=== PATIENT | male | born 1955 | race African-American/Black ===

== ENCOUNTER 2016-08-31 19:17 | Inpatient (IN) | payer MEDICARE ==
[~2016-08-31] VITALS: Ht 172.7 cm; Wt 55.4 kg
[~2016-08-31 19:17] MED LIST: ASPI-867 PO; ATOR20TA PO; CALC667T2 PO; CLOP75TA2 PO; ESOM10SU PO; FAMO20TA96 PO; GABA-531 PO; HYDR-3927 PO; METO25TA6 PO; ROC50 PO; SIMV40TA5 PO
[2016-08-31] MEDS ORDERED: SODIUM CHLORIDE 0.9% 1,000 ML IV ONE (20:45)
[2016-08-31] MEDS ORDERED: ACETAMINOPHEN 650MG SUPP PR ONE (20:45)
[2016-08-31] MEDS ORDERED: ACETAMINOPHEN 325MG SUPP ONE (20:46)
[2016-08-31] MEDS ORDERED: VANCOMYCIN 1 G PREMIX 200 ML IV SCH (21:15)
[2016-08-31] MEDS ORDERED: PIPERACILLIN SODIUM/TAZOBACTAM 4.5 G in DEXT 5% WATER 100 ML IV SCH (21:15)
[2016-08-31 21:27] LABS: BASOPHILS % 0.6 % (0.0-2.0); EOSINOPHILS % 0.8 % (0.0-5.0); HEMATOCRIT. 24.8 % (42.0-52.0); HEMOGLOBIN. 7.8 g/dL (14.0-18.0); LYMPHOCYTES % 7.2 % (20.0-50.0); MEAN CORPUSCULAR HEMOGLOBIN 29.1 pg (28.0-32.0); MEAN CORPUSCULAR HGB CONC 31.3 g/dL (31.0-37.0); MEAN CORPUSCULAR VOLUME 93.1 fL (80.0-94.0); MEAN PLATELET VOLUME 7.3 fl (7.4-10.4); MONOCYTES % 11.6 % (2.0-8.0); NEUTROPHILS % 79.8 % (40.0-76.0); PLATELET 255 x1000/uL (130-400); RED BLOOD CELL COUNT 2.67 mill/uL (4.7-6.1); RED CELL DISTRIBUTION WIDTH 18.4 % (11.6-14.6); WHITE BLOOD COUNT 11.3 x1000/uL (4.5-11.0)
[2016-08-31 21:35] LABS: INR 1.3; PROTHROMBIN TIME 13.6 sec
[2016-08-31 21:42] LABS: ALANINE AMINOTRANSFERASE 18 IU/L (13-61); ANION GAP 15; CALCIUM 8.8 mg/dL (8.5-10.1); CARBON DIOXIDE 35 mEq/L (21-32); CHLORIDE 98 mEq/L (98-107); INDEX HEMOLYSI 1 (1-3); INDEX ICTERIC 1 (1-4); INDEX LIPEMIC 1 (1-3); UREA NITROGEN BLOOD 43 mg/dL (7-21); eGFR 14 mL/min (>60)
[2016-08-31 21:44] LABS: NT PRO B-TYPE NATRIURETIC PEP 11319 pg/mL (5-125); TROPONIN I 0.07 ng/mL (0.00-0.04)
[2016-09-01] MEDS ORDERED: ATOR20TA PO (03:12)
[2016-09-01] MEDS ORDERED: DULO60CA44 PO (03:12)
[2016-09-01] MEDS ORDERED: ASPI-1035 PO (03:12)
[2016-09-01] MEDS ORDERED: DOCU-150 PO (03:12)
[2016-09-01] MEDS ORDERED: DOCUSATE SODIUM 100MG CAPSULE PO PRN (11:45)
[2016-09-01] MEDS ORDERED: IPRATROPIUM/ALBUTEROL 0.5-3(2.5)MG/3ML NEB INH PRN (11:45)
[2016-09-01] MEDS ORDERED: HYDROCODONE/ACETAMINOPHEN 5/325MG TABLET PO PRN (11:45)
[2016-09-01] MEDS ORDERED: ONDANSETRON HCL 4MG/2ML VIAL IV PRN (11:45)
[2016-09-01] MEDS ORDERED: CLONIDINE 0.1MG TABLET PO PRN (11:45)
[2016-09-01] MEDS ORDERED: PIPERACILLIN/TAZ 2.25G PREMIX 50 ML IV SCH (12:50)
[2016-09-01] MEDS ORDERED: METOPROLOL TARTRATE 25MG TABLET PO SCH (15:15)
[2016-09-01 16:35] LABS: CALCIUM 9.5 mg/dL (8.5-10.1); MAGNESIUM 2.1 mg/dL (1.8-2.4)
[2016-09-01 16:37] LABS: CREATINE KINASE MB FRACTION 4.6 ng/mL (0.5-3.6); TROPONIN I 0.06 ng/mL (0.00-0.04)
[2016-09-01 20:45] VITALS: BP 103/70
[2016-09-01] MEDS ORDERED: ATORVASTATIN CALCIUM 20MG TABLET PO SCH (21:00)
[2016-09-01 23:28] LABS: CREATINE KINASE MB FRACTION 3.4 ng/mL (0.5-3.6); TROPONIN I 0.05 ng/mL (0.00-0.04)
[2016-09-01] MEDS: ACETAMINOPHEN 325MG TABLET PO PRN (23:54)
[2016-09-02] VITALS (9 sets, daily range): BP systolic 70–116; BP diastolic 46–68
[2016-09-02] MEDS: PIPERACILLIN/TAZ 2.25G PREMIX 50 ML IV SCH ×4 (00:05→23:52)
[2016-09-02 06:46] LABS: BASOPHILS % 0.6 % (0.0-2.0); EOSINOPHILS % 1.9 % (0.0-5.0); HEMATOCRIT. 24.6 % (42.0-52.0); HEMOGLOBIN. 7.6 g/dL (14.0-18.0); LYMPHOCYTES % 10.2 % (20.0-50.0); MEAN CORPUSCULAR HEMOGLOBIN 28.7 pg (28.0-32.0); MEAN CORPUSCULAR HGB CONC 30.9 g/dL (31.0-37.0); MEAN CORPUSCULAR VOLUME 92.8 fL (80.0-94.0); MEAN PLATELET VOLUME 7.9 fl (7.4-10.4); MONOCYTES % 9.5 % (2.0-8.0); NEUTROPHILS % 77.8 % (40.0-76.0); PLATELET 294 x1000/uL (130-400); RED BLOOD CELL COUNT 2.65 mill/uL (4.7-6.1); RED CELL DISTRIBUTION WIDTH 18.8 % (11.6-14.6); WHITE BLOOD COUNT 11.3 x1000/uL (4.5-11.0)
[2016-09-02 07:14] LABS: CALCIUM 9.5 mg/dL (8.5-10.1)
[2016-09-02 07:31] LABS: THYROID STIMULATING HORMONE 1.4 uIU/mL (0.36-3.74)
[2016-09-02] MEDS: METOPROLOL TARTRATE 25MG TABLET PO SCH ×2 (09:03→21:00)
[2016-09-02] MEDS ORDERED: IPRATROPIUM/ALBUTEROL 0.5-3(2.5)MG/3ML NEB HHN PRN (12:15)
[2016-09-02] MEDS ORDERED: PANTOPRAZOLE SODIUM 40 MG/VIAL IV NR (13:30)
[2016-09-02] MEDS ORDERED: EPINEPHRINE 0.1MG/ML (1:10,000) 10ML SYR ONE (13:37)
[2016-09-02] MEDS ORDERED: VANCOMYCIN 1 G PREMIX 200 ML IV SCH (14:00)
[2016-09-02] MEDS: IPRATROPIUM/ALBUTEROL 0.5-3(2.5)MG/3ML NEB HHN SCH ×3 (16:15→23:30)
[2016-09-02] MEDS: SODIUM HYPOCHLORITE (0.25%) 480ML SOLUTION (HALF STRENGTH) TOP SCH (16:52)
[2016-09-02] MEDS: SUCRALFATE 1G TABLET PO SCH ×3 (16:52→21:00)
[2016-09-02] MEDS ORDERED: LORAZEPAM 2MG/ML CPJ IV PRN (17:30)
[2016-09-02] MEDS: ATORVASTATIN CALCIUM 40MG TABLET PO SCH (21:00)
[2016-09-02] MEDS ORDERED: NOREPINEPHRINE 32 MG in DEXT 5% WATER 468 ML IV PRN (22:15)
[2016-09-02 22:40] LABS: BG BASE EXCESS 1.8 mmol/L (-2.0-2.0); BG CARBOXYHEMOGLOBIN 0.6 % (0.5-1.5); BG DEOXYHEMOGLOBIN 5.6 % (0.0-5.0); BG FRACTION INSPIRED OXYGEN 80; BG HCO3 ACT 26.8 mmol/L (22.0-26.0); BG METHEMOGLOBIN 0.4 % (0.0-1.5); BG OXYGEN SATURATION 94.3 % (92.0-98.5); BG OXYHEMOGLOBIN 93.4 % (94.0-97.0); BG PCO2 44.3 mmHg (35.0-45.0); BG PO2 77.7 mmHg (75.0-100.0); BG SAMPLE SITE LEFT RADIAL; BG TIDAL VOLUME(mL) 550 mL; BG TOTAL HEMOGLOBIN 8.7 g/dL (12.0-18.0); BG VENT MODE VENT - A/C; BG VENT RATE 18 set
[2016-09-02] MEDS: PROPOFOL 10MG/ML 100ML 100 ML IV PRN (23:07)
[2016-09-02 23:32] LABS: DIFFERENTIAL COMMENT 1; HEMOGLOBIN. 7.7 g/dL (14.0-18.0); MEAN CORPUSCULAR HEMOGLOBIN 28.6 pg (28.0-32.0); MEAN CORPUSCULAR HGB CONC 30.6 g/dL (31.0-37.0); MEAN CORPUSCULAR VOLUME 93.5 fL (80.0-94.0); MEAN PLATELET VOLUME 7.8 fl (7.4-10.4); PLATELET 286 x1000/uL (130-400); RED BLOOD CELL COUNT 2.67 mill/uL (4.7-6.1); RED CELL DISTRIBUTION WIDTH 19.4 % (11.6-14.6); WHITE BLOOD COUNT 15.8 x1000/uL (4.5-11.0)
[2016-09-02 23:44] LABS: CALCIUM 8.8 mg/dL (8.5-10.1)
[2016-09-03] VITALS (84 sets, daily range): BP systolic 57–158; BP diastolic 20–104
[2016-09-03 00:52] LABS: PLATELET ESTIMATE NORMAL
[2016-09-03] MEDS: IPRATROPIUM/ALBUTEROL 0.5-3(2.5)MG/3ML NEB HHN SCH ×5 (03:44→20:27)
[2016-09-03] MEDS: PROPOFOL 10MG/ML 100ML 100 ML IV PRN ×3 (04:58→23:30)
[2016-09-03 07:11] LABS: BG BASE EXCESS 3.8 mmol/L (-2.0-2.0); BG CARBOXYHEMOGLOBIN 0.5 % (0.5-1.5); BG DEOXYHEMOGLOBIN 1.4 % (0.0-5.0); BG HCO3 ACT 25.4 mmol/L (22.0-26.0); BG METHEMOGLOBIN 0.3 % (0.0-1.5); BG OXYGEN SATURATION 98.6 % (92.0-98.5); BG OXYHEMOGLOBIN 97.8 % (94.0-97.0); BG PCO2 27.5 mmHg (35.0-45.0); BG PH 7.584 (7.350-7.450); BG PO2 127.4 mmHg (75.0-100.0); BG SAMPLE SITE RIGHT BRACHIAL; BG TIDAL VOLUME(mL) 550 mL; BG TOTAL HEMOGLOBIN 8.8 g/dL (12.0-18.0); BG VENT MODE VENT - A/C; BG VENT RATE 18 set
[2016-09-03 07:22] LABS: BASOPHILS % 0.3 % (0.0-2.0); EOSINOPHILS % 0.7 % (0.0-5.0); HEMOGLOBIN. 8.1 g/dL (14.0-18.0); LYMPHOCYTES % 8.8 % (20.0-50.0); MEAN CORPUSCULAR HEMOGLOBIN 28.7 pg (28.0-32.0); MEAN CORPUSCULAR HGB CONC 32.5 g/dL (31.0-37.0); MEAN CORPUSCULAR VOLUME 88.2 fL (80.0-94.0); MEAN PLATELET VOLUME 7.6 fl (7.4-10.4); MONOCYTES % 7.2 % (2.0-8.0); PLATELET 271 x1000/uL (130-400); RED BLOOD CELL COUNT 2.83 mill/uL (4.7-6.1); RED CELL DISTRIBUTION WIDTH 19.7 % (11.6-14.6); WHITE BLOOD COUNT 12.6 x1000/uL (4.5-11.0)
[2016-09-03 08:44] LABS: TROPONIN I 0.64 ng/mL (0.00-0.04)
[2016-09-03] MEDS: METOPROLOL TARTRATE 25MG TABLET PO SCH ×2 (09:00→21:00)
[2016-09-03] MEDS: ASPIRIN 81MG EC TABLET PO SCH (10:59)
[2016-09-03] MEDS: SUCRALFATE 1G TABLET PO SCH (10:59)
[2016-09-03] MEDS: PANTOPRAZOLE SODIUM 40 MG/VIAL IV SCH (10:59)
[2016-09-03] MEDS: PIPERACILLIN/TAZ 2.25G PREMIX 50 ML IV SCH ×3 (10:59→23:28)
[2016-09-03] MEDS: CLOPIDOGREL 75MG TABLET PO SCH (11:00)
[2016-09-03] MEDS: SODIUM HYPOCHLORITE (0.25%) 480ML SOLUTION (HALF STRENGTH) TOP SCH (11:00)
[2016-09-03 13:10] LABS: BG BASE EXCESS 4.5 mmol/L (-2.0-2.0); BG CARBOXYHEMOGLOBIN 0.3 % (0.5-1.5); BG DEOXYHEMOGLOBIN 0.9 % (0.0-5.0); BG FRACTION INSPIRED OXYGEN 50; BG HCO3 ACT 28.4 mmol/L (22.0-26.0); BG METHEMOGLOBIN 0.3 % (0.0-1.5); BG OXYGEN SATURATION 99.1 % (92.0-98.5); BG OXYHEMOGLOBIN 98.5 % (94.0-97.0); BG PCO2 39.6 mmHg (35.0-45.0); BG PH 7.473 (7.350-7.450); BG PO2 175.8 mmHg (75.0-100.0); BG SAMPLE SITE RIGHT BRACHIAL; BG TIDAL VOLUME(mL) 500 mL; BG TOTAL HEMOGLOBIN 10.4 g/dL (12.0-18.0); BG VENT MODE VENT - A/C; BG VENT RATE 12 set
[2016-09-03] MEDS: SUCRALFATE 1 G/10 ML UDC PO SCH ×3 (13:33→21:49)
[2016-09-03] MEDS: NOREPINEPHRINE 32 MG in DEXT 5% WATER 468 ML IV PRN (14:40)
[2016-09-03] MEDS: ATORVASTATIN CALCIUM 40MG TABLET PO SCH (21:49)
[2016-09-03] MEDS: EPOETIN ALFA 10000UNITS/ML VIAL SUBCUT SCH (21:49)
[2016-09-04] VITALS (37 sets, daily range): BP systolic 69–159; BP diastolic 23–124
[2016-09-04] MEDS: IPRATROPIUM/ALBUTEROL 0.5-3(2.5)MG/3ML NEB HHN SCH ×7 (00:20→23:46)
[2016-09-04 05:19] LABS: BASOPHILS % 0.3 % (0.0-2.0); EOSINOPHILS % 0.8 % (0.0-5.0); HEMATOCRIT. 26.2 % (42.0-52.0); HEMOGLOBIN. 8.4 g/dL (14.0-18.0); LYMPHOCYTES % 7.4 % (20.0-50.0); MEAN CORPUSCULAR HEMOGLOBIN 28.8 pg (28.0-32.0); MEAN CORPUSCULAR HGB CONC 32.2 g/dL (31.0-37.0); MEAN CORPUSCULAR VOLUME 89.4 fL (80.0-94.0); MEAN PLATELET VOLUME 7.7 fl (7.4-10.4); MONOCYTES % 7.7 % (2.0-8.0); NEUTROPHILS % 83.8 % (40.0-76.0); PLATELET 254 x1000/uL (130-400); RED BLOOD CELL COUNT 2.93 mill/uL (4.7-6.1); RED CELL DISTRIBUTION WIDTH 19.8 % (11.6-14.6); WHITE BLOOD COUNT 11.3 x1000/uL (4.5-11.0)
[2016-09-04] MEDS: SODIUM HYPOCHLORITE (0.25%) 480ML SOLUTION (HALF STRENGTH) TOP SCH (05:30)
[2016-09-04 06:00] LABS: CALCIUM 9.3 mg/dL (8.5-10.1)
[2016-09-04] MEDS: PROPOFOL 10MG/ML 100ML 100 ML IV PRN (06:04)
[2016-09-04] MEDS: PIPERACILLIN/TAZ 2.25G PREMIX 50 ML IV SCH ×3 (07:30→23:21)
[2016-09-04] MEDS: ASPIRIN 81MG EC TABLET PO SCH (08:21)
[2016-09-04] MEDS: SUCRALFATE 1 G/10 ML UDC PO SCH ×4 (08:21→21:07)
[2016-09-04] MEDS: PANTOPRAZOLE SODIUM 40 MG/VIAL IV SCH (08:21)
[2016-09-04] MEDS: MAGNESIUM/ALUMINUM HYDROXIDE/SIMETHICONE 30ML UDC PO PRN (08:21)
[2016-09-04] MEDS: METOPROLOL TARTRATE 25MG TABLET PO SCH ×2 (08:22→21:08)
[2016-09-04] MEDS: CLOPIDOGREL 75MG TABLET PO SCH (08:22)
[2016-09-04 08:30] LABS: BG BASE EXCESS 0.3 mmol/L (-2.0-2.0); BG CARBOXYHEMOGLOBIN 0.5 % (0.5-1.5); BG DEOXYHEMOGLOBIN 2.9 % (0.0-5.0); BG FRACTION INSPIRED OXYGEN 40; BG HCO3 ACT 23.6 mmol/L (22.0-26.0); BG METHEMOGLOBIN 0.2 % (0.0-1.5); BG OXYGEN SATURATION 97.1 % (92.0-98.5); BG OXYHEMOGLOBIN 96.4 % (94.0-97.0); BG PCO2 33.1 mmHg (35.0-45.0); BG PH 7.471 (7.350-7.450); BG SAMPLE SITE RIGHT BRACHIAL; BG TIDAL VOLUME(mL) 500 mL; BG TOTAL HEMOGLOBIN 10.1 g/dL (12.0-18.0); BG VENT MODE VENT - A/C; BG VENT RATE 12 set
[2016-09-04] MEDS ORDERED: LORAZEPAM 2MG/ML CPJ IV PRN (11:30)
[2016-09-04] MEDS: FENTANYL CITRATE/PF 500 MCG in SODIUM CHLORIDE 0.9% 40 ML IV PRN ×2 (11:42→21:15)
[2016-09-04] MEDS ORDERED: VANCOMYCIN 1 G PREMIX 200 ML IV SCH ×2 (15:00)
[2016-09-04] MEDS: ATORVASTATIN CALCIUM 40MG TABLET PO SCH (21:07)
[2016-09-05] VITALS (93 sets, daily range): BP systolic 44–167; BP diastolic 24–122
[2016-09-05] MEDS: IPRATROPIUM/ALBUTEROL 0.5-3(2.5)MG/3ML NEB HHN SCH ×5 (04:13→20:05)
[2016-09-05 05:29] LABS: CALCIUM 9.2 mg/dL (8.5-10.1)
[2016-09-05 06:37] LABS: HEMATOCRIT. 28.9 % (42.0-52.0); MEAN CORPUSCULAR HEMOGLOBIN 28.4 pg (28.0-32.0); MEAN CORPUSCULAR HGB CONC 31.4 g/dL (31.0-37.0); MEAN CORPUSCULAR VOLUME 90.6 fL (80.0-94.0); MEAN PLATELET VOLUME 8.4 fl (7.4-10.4); PLATELET 265 x1000/uL (130-400); RED BLOOD CELL COUNT 3.18 mill/uL (4.7-6.1); RED CELL DISTRIBUTION WIDTH 19.9 % (11.6-14.6)
[2016-09-05 06:43] LABS: DIFFERENTIAL COMMENT 1
[2016-09-05] MEDS: SODIUM HYPOCHLORITE (0.25%) 480ML SOLUTION (HALF STRENGTH) TOP SCH (07:38)
[2016-09-05] MEDS: SUCRALFATE 1 G/10 ML UDC PO SCH ×4 (07:50→21:20)
[2016-09-05 07:58] LABS: ANISOCYTOSIS 1+; PLATELET ESTIMATE NORMAL
[2016-09-05] MEDS: METOPROLOL TARTRATE 25MG TABLET PO SCH ×2 (10:00→21:00)
[2016-09-05] MEDS: PANTOPRAZOLE SODIUM 40 MG/VIAL IV SCH (11:29)
[2016-09-05] MEDS: CLOPIDOGREL 75MG TABLET PO SCH (11:29)
[2016-09-05] MEDS: PIPERACILLIN/TAZ 2.25G PREMIX 50 ML IV SCH ×2 (11:30→18:32)
[2016-09-05] MEDS: ASPIRIN 81MG EC TABLET PO SCH (11:30)
[2016-09-05] MEDS ORDERED: LORAZEPAM 2MG/ML CPJ IV PRN (11:30)
[2016-09-05] MEDS ORDERED: DEXTROSE 50% WATER 50ML SYRINGE IV NR (14:11)
[2016-09-05] MEDS ORDERED: DEXT 5%/0.9% NACL 1,000 ML IV STA (14:11)
[2016-09-05] MEDS: MORPHINE SULFATE 2 MG/ML CPJ (NOT FOR IM USE) IV PRN (18:47)
[2016-09-05] MEDS ORDERED: MIDAZOLAM HCL 50 MG in DEXTROSE 5% WATER 40 ML IV PRN (20:45)
[2016-09-05] MEDS: ATORVASTATIN CALCIUM 40MG TABLET PO SCH (21:20)
[2016-09-05] MEDS: EPOETIN ALFA 10000UNITS/ML VIAL SUBCUT SCH (21:27)
[2016-09-05] MEDS: MIDODRINE HCL 5MG TABLET PO SCH (21:27)
[2016-09-05] MEDS: FENTANYL CITRATE/PF 500 MCG in SODIUM CHLORIDE 0.9% 40 ML IV PRN (22:21)
[2016-09-06] VITALS (88 sets, daily range): BP systolic 55–194; BP diastolic 28–141
[2016-09-06] MEDS: IPRATROPIUM/ALBUTEROL 0.5-3(2.5)MG/3ML NEB HHN SCH ×6 (00:22→20:08)
[2016-09-06] MEDS: PIPERACILLIN/TAZ 2.25G PREMIX 50 ML IV SCH ×3 (02:58→20:31)
[2016-09-06] MEDS: MORPHINE SULFATE 2 MG/ML CPJ (NOT FOR IM USE) IV PRN ×2 (03:11→21:46)
[2016-09-06] MEDS: NOREPINEPHRINE 32 MG in DEXT 5% WATER 468 ML IV PRN (04:00)
[2016-09-06 05:39] LABS: BASOPHILS % 0.7 % (0.0-2.0); EOSINOPHILS % 1.7 % (0.0-5.0); HEMATOCRIT. 31.8 % (42.0-52.0); HEMOGLOBIN. 9.7 g/dL (14.0-18.0); LYMPHOCYTES % 7.3 % (20.0-50.0); MEAN CORPUSCULAR HEMOGLOBIN 27.8 pg (28.0-32.0); MEAN CORPUSCULAR HGB CONC 30.4 g/dL (31.0-37.0); MEAN CORPUSCULAR VOLUME 91.4 fL (80.0-94.0); MEAN PLATELET VOLUME 7.9 fl (7.4-10.4); NEUTROPHILS % 80.3 % (40.0-76.0); PLATELET 345 x1000/uL (130-400); RED BLOOD CELL COUNT 3.48 mill/uL (4.7-6.1); WHITE BLOOD COUNT 12.3 x1000/uL (4.5-11.0)
[2016-09-06] MEDS: FENTANYL CITRATE/PF 500 MCG in SODIUM CHLORIDE 0.9% 40 ML IV PRN (05:49)
[2016-09-06 06:08] LABS: CALCIUM 9.3 mg/dL (8.5-10.1)
[2016-09-06 07:32] LABS: BG CARBOXYHEMOGLOBIN 0.2 % (0.5-1.5); BG CPAP (cmH2O) 0 cm(H2O); BG HCO3 ACT 22.3 mmol/L (22.0-26.0); BG OXYHEMOGLOBIN 95.8 % (94.0-97.0); BG PCO2 40.8 mmHg (35.0-45.0); BG PH 7.356 (7.350-7.450); BG SAMPLE SITE RIGHT BRACHIAL; BG TOTAL HEMOGLOBIN 10.3 g/dL (12.0-18.0); BG VENT MODE VENT - CPAP
[2016-09-06] MEDS: CLOPIDOGREL 75MG TABLET PO SCH (08:29)
[2016-09-06] MEDS: PANTOPRAZOLE SODIUM 40 MG/VIAL IV SCH (08:29)
[2016-09-06] MEDS: SUCRALFATE 1 G/10 ML UDC PO SCH ×4 (08:29→20:31)
[2016-09-06] MEDS: ASPIRIN 81MG EC TABLET PO SCH (08:30)
[2016-09-06] MEDS: SODIUM HYPOCHLORITE (0.25%) 480ML SOLUTION (HALF STRENGTH) TOP SCH (08:37)
[2016-09-06] MEDS: MIDODRINE HCL 5MG TABLET PO SCH ×3 (08:53→17:01)
[2016-09-06] MEDS: METOPROLOL TARTRATE 25MG TABLET PO SCH ×2 (09:00→21:00)
[2016-09-06] MEDS: ATORVASTATIN CALCIUM 40MG TABLET PO SCH (20:31)
[2016-09-07] VITALS (53 sets, daily range): BP systolic 63–216; BP diastolic 26–122
[2016-09-07] MEDS: IPRATROPIUM/ALBUTEROL 0.5-3(2.5)MG/3ML NEB HHN SCH ×6 (00:02→21:05)
[2016-09-07] MEDS: PIPERACILLIN/TAZ 2.25G PREMIX 50 ML IV SCH ×3 (03:58→19:41)
[2016-09-07] MEDS: MORPHINE SULFATE 2 MG/ML CPJ (NOT FOR IM USE) IV PRN (05:58)
[2016-09-07 06:18] LABS: CALCIUM 8.6 mg/dL (8.5-10.1)
[2016-09-07 07:48] LABS: HEMATOCRIT. 25.9 % (42.0-52.0); HEMOGLOBIN. 8.1 g/dL (14.0-18.0); MEAN CORPUSCULAR HEMOGLOBIN 28.3 pg (28.0-32.0); MEAN CORPUSCULAR HGB CONC 31.3 g/dL (31.0-37.0); MEAN CORPUSCULAR VOLUME 90.4 fL (80.0-94.0); MEAN PLATELET VOLUME 7.8 fl (7.4-10.4); PLATELET 347 x1000/uL (130-400); RED BLOOD CELL COUNT 2.87 mill/uL (4.7-6.1); RED CELL DISTRIBUTION WIDTH 20.1 % (11.6-14.6); WHITE BLOOD COUNT 10.5 x1000/uL (4.5-11.0)
[2016-09-07 07:50] LABS: DIFFERENTIAL COMMENT 1
[2016-09-07] MEDS: CLOPIDOGREL 75MG TABLET PO SCH (08:13)
[2016-09-07] MEDS: PANTOPRAZOLE SODIUM 40 MG/VIAL IV SCH (08:13)
[2016-09-07] MEDS: ASPIRIN 81MG EC TABLET PO SCH (08:13)
[2016-09-07] MEDS: MIDODRINE HCL 5MG TABLET PO SCH ×3 (08:13→17:46)
[2016-09-07] MEDS: SUCRALFATE 1 G/10 ML UDC PO SCH ×4 (08:13→21:18)
[2016-09-07 08:14] LABS: ANISOCYTOSIS 1+; PLATELET ESTIMATE NORMAL
[2016-09-07] MEDS: SODIUM HYPOCHLORITE (0.25%) 480ML SOLUTION (HALF STRENGTH) TOP SCH (08:26)
[2016-09-07] MEDS: METOPROLOL TARTRATE 25MG TABLET PO SCH ×2 (08:26→21:00)
[2016-09-07] MEDS: EPOETIN ALFA 10000UNITS/ML VIAL SUBCUT SCH (21:18)
[2016-09-07] MEDS: ATORVASTATIN CALCIUM 40MG TABLET PO SCH (21:18)
[2016-09-08] VITALS (36 sets, daily range): BP systolic 49–149; BP diastolic 18–116
[2016-09-08] MEDS: PIPERACILLIN/TAZ 2.25G PREMIX 50 ML IV SCH ×3 (03:49→20:32)
[2016-09-08] MEDS: IPRATROPIUM/ALBUTEROL 0.5-3(2.5)MG/3ML NEB HHN SCH ×6 (04:00→21:39)
[2016-09-08 06:23] LABS: HEMATOCRIT. 28.8 % (42.0-52.0); HEMOGLOBIN. 9.2 g/dL (14.0-18.0); MEAN CORPUSCULAR HEMOGLOBIN 28.3 pg (28.0-32.0); MEAN CORPUSCULAR VOLUME 88.3 fL (80.0-94.0); MEAN PLATELET VOLUME 7.9 fl (7.4-10.4); PLATELET 365 x1000/uL (130-400); RED BLOOD CELL COUNT 3.27 mill/uL (4.7-6.1)
[2016-09-08 06:26] LABS: DIFFERENTIAL COMMENT 1
[2016-09-08 06:47] LABS: CALCIUM 8.7 mg/dL (8.5-10.1)
[2016-09-08 07:43] LABS: GIANT PLATELETS 1+; PLATELET ESTIMATE NORMAL
[2016-09-08 07:44] LABS: ANISOCYTOSIS 1+
[2016-09-08] MEDS: ASPIRIN 81MG EC TABLET PO SCH (08:45)
[2016-09-08] MEDS: MIDODRINE HCL 5MG TABLET PO SCH ×3 (08:45→17:00)
[2016-09-08] MEDS: PANTOPRAZOLE SODIUM 40 MG/VIAL IV SCH (08:45)
[2016-09-08] MEDS: SUCRALFATE 1 G/10 ML UDC PO SCH ×4 (08:45→20:54)
[2016-09-08] MEDS: CLOPIDOGREL 75MG TABLET PO SCH (08:45)
[2016-09-08] MEDS: SODIUM HYPOCHLORITE (0.25%) 480ML SOLUTION (HALF STRENGTH) TOP SCH (08:46)
[2016-09-08] MEDS: METOPROLOL TARTRATE 25MG TABLET PO SCH ×2 (08:46→20:55)
[2016-09-08] MEDS: MORPHINE SULFATE 2 MG/ML CPJ (NOT FOR IM USE) IV PRN (14:15)
[2016-09-08] MEDS: LORAZEPAM 2MG/ML CPJ IV PRN ×2 (17:00→21:15)
[2016-09-08] MEDS: ATORVASTATIN CALCIUM 40MG TABLET PO SCH (20:54)
[2016-09-09] VITALS (22 sets, daily range): BP systolic 47–136; BP diastolic 29–82
[2016-09-09] MEDS: IPRATROPIUM/ALBUTEROL 0.5-3(2.5)MG/3ML NEB HHN SCH ×6 (00:57→20:28)
[2016-09-09] MEDS: PIPERACILLIN/TAZ 2.25G PREMIX 50 ML IV SCH ×3 (03:43→21:50)
[2016-09-09 06:36] LABS: BASOPHILS % 0.6 % (0.0-2.0); EOSINOPHILS % 2.2 % (0.0-5.0); HEMOGLOBIN. 9.6 g/dL (14.0-18.0); LYMPHOCYTES % 10.3 % (20.0-50.0); MEAN CORPUSCULAR HEMOGLOBIN 28.1 pg (28.0-32.0); MEAN CORPUSCULAR HGB CONC 32.1 g/dL (31.0-37.0); MEAN CORPUSCULAR VOLUME 87.5 fL (80.0-94.0); MONOCYTES % 8.4 % (2.0-8.0); NEUTROPHILS % 78.5 % (40.0-76.0); PLATELET 426 x1000/uL (130-400); RED BLOOD CELL COUNT 3.42 mill/uL (4.7-6.1); RED CELL DISTRIBUTION WIDTH 19.3 % (11.6-14.6); WHITE BLOOD COUNT 9.2 x1000/uL (4.5-11.0)
[2016-09-09] MEDS: SUCRALFATE 1 G/10 ML UDC PO SCH ×4 (09:31→21:37)
[2016-09-09] MEDS: PANTOPRAZOLE SODIUM 40 MG/VIAL IV SCH (09:31)
[2016-09-09] MEDS: MAGNESIUM/ALUMINUM HYDROXIDE/SIMETHICONE 30ML UDC PO PRN (09:31)
[2016-09-09] MEDS: CLOPIDOGREL 75MG TABLET PO SCH (09:32)
[2016-09-09] MEDS: METOPROLOL TARTRATE 25MG TABLET PO SCH ×2 (09:32→21:00)
[2016-09-09] MEDS: ASPIRIN 81MG EC TABLET PO SCH (09:33)
[2016-09-09] MEDS: MIDODRINE HCL 5MG TABLET PO SCH ×3 (09:33→17:18)
[2016-09-09] MEDS: MORPHINE SULFATE 2 MG/ML CPJ (NOT FOR IM USE) IV PRN (09:34)
[2016-09-09] MEDS: SODIUM HYPOCHLORITE (0.25%) 480ML SOLUTION (HALF STRENGTH) TOP SCH (09:35)
[2016-09-09] MEDS: ACETAMINOPHEN 325MG TABLET PO PRN (17:19)
[2016-09-09] MEDS: ATORVASTATIN CALCIUM 40MG TABLET PO SCH (21:37)
[2016-09-10] VITALS (33 sets, daily range): BP systolic 47–181; BP diastolic 16–135
[2016-09-10] MEDS ORDERED: SODIUM CHLORIDE 0.9% 1000ML BAG (SEPSIS BOLUS) IV NR
[2016-09-10] MEDS: IPRATROPIUM/ALBUTEROL 0.5-3(2.5)MG/3ML NEB HHN SCH ×7 (00:30→23:59)
[2016-09-10] MEDS: PIPERACILLIN/TAZ 2.25G PREMIX 50 ML IV SCH ×3 (03:22→20:39)
[2016-09-10] MEDS ORDERED: CLONIDINE 0.1MG TABLET PO PRN (03:45)
[2016-09-10] MEDS: MORPHINE SULFATE 2 MG/ML CPJ (NOT FOR IM USE) IV PRN ×2 (03:55→16:26)
[2016-09-10 08:10] LABS: BASOPHILS % 0.6 % (0.0-2.0); HEMATOCRIT. 29.9 % (42.0-52.0); HEMOGLOBIN. 9.6 g/dL (14.0-18.0); LYMPHOCYTES % 12.2 % (20.0-50.0); MEAN CORPUSCULAR HEMOGLOBIN 28.4 pg (28.0-32.0); MEAN CORPUSCULAR VOLUME 88.7 fL (80.0-94.0); MEAN PLATELET VOLUME 7.6 fl (7.4-10.4); MONOCYTES % 9.2 % (2.0-8.0); PLATELET 436 x1000/uL (130-400); RED BLOOD CELL COUNT 3.36 mill/uL (4.7-6.1); RED CELL DISTRIBUTION WIDTH 19.4 % (11.6-14.6)
[2016-09-10 08:42] LABS: CALCIUM 8.8 mg/dL (8.5-10.1)
[2016-09-10 08:53] LABS: ALANINE AMINOTRANSFERASE 45 IU/L (13-61); ALBUMIN 1.8 g/dL (3.4-5.0); BILIRUBIN DIRECT < 0.1 mg/dL (0.0-0.2); INDEX HEMOLYSI 1 (1-3); INDEX ICTERIC 1 (1-4); INDEX LIPEMIC 1 (1-3)
[2016-09-10] MEDS: SODIUM HYPOCHLORITE (0.25%) 480ML SOLUTION (HALF STRENGTH) TOP SCH (09:00)
[2016-09-10] MEDS: CLOPIDOGREL 75MG TABLET PO SCH (10:33)
[2016-09-10] MEDS: PANTOPRAZOLE SODIUM 40 MG/VIAL IV SCH (10:33)
[2016-09-10] MEDS: SUCRALFATE 1 G/10 ML UDC PO SCH ×4 (10:33→20:39)
[2016-09-10] MEDS: MIDODRINE HCL 5MG TABLET PO SCH ×3 (10:34→16:44)
[2016-09-10] MEDS: ASPIRIN 81MG EC TABLET PO SCH (10:34)
[2016-09-10] MEDS: METOPROLOL TARTRATE 25MG TABLET PO SCH ×2 (10:39→20:40)
[2016-09-10 12:17] LABS: HEPATITIS B SURFACE AB 6.5 mIU/mL
[2016-09-10 12:57] LABS: HEPATITIS C VIR.AB < 0.02 INDEXVAL (0.00-0.80)
[2016-09-10] MEDS: ENOXAPARIN 30MG/0.3ML SYR SUBCUT SCH (14:38)
[2016-09-10] MEDS: ATORVASTATIN CALCIUM 40MG TABLET PO SCH (20:39)
[2016-09-11] VITALS (10 sets, daily range): BP systolic 71–125; BP diastolic 34–74
[2016-09-11] MEDS: PIPERACILLIN/TAZ 2.25G PREMIX 50 ML IV SCH ×3 (03:06→18:06)
[2016-09-11] MEDS: IPRATROPIUM/ALBUTEROL 0.5-3(2.5)MG/3ML NEB HHN SCH ×4 (04:15→17:34)
[2016-09-11 08:25] LABS: BASOPHILS % 0.5 % (0.0-2.0); EOSINOPHILS % 2.1 % (0.0-5.0); HEMATOCRIT. 31.3 % (42.0-52.0); HEMOGLOBIN. 9.7 g/dL (14.0-18.0); LYMPHOCYTES % 9.5 % (20.0-50.0); MEAN CORPUSCULAR HEMOGLOBIN 27.4 pg (28.0-32.0); MEAN CORPUSCULAR HGB CONC 31.1 g/dL (31.0-37.0); MEAN PLATELET VOLUME 7.8 fl (7.4-10.4); MONOCYTES % 8.2 % (2.0-8.0); NEUTROPHILS % 79.7 % (40.0-76.0); PLATELET 426 x1000/uL (130-400); RED BLOOD CELL COUNT 3.56 mill/uL (4.7-6.1); RED CELL DISTRIBUTION WIDTH 19.1 % (11.6-14.6); WHITE BLOOD COUNT 8.9 x1000/uL (4.5-11.0)
[2016-09-11 09:11] LABS: CALCIUM 8.7 mg/dL (8.5-10.1)
[2016-09-11] MEDS: SUCRALFATE 1 G/10 ML UDC PO SCH ×3 (09:15→18:06)
[2016-09-11] MEDS: ASPIRIN 81MG EC TABLET PO SCH (09:16)
[2016-09-11] MEDS: MIDODRINE HCL 5MG TABLET PO SCH ×3 (09:16→18:06)
[2016-09-11] MEDS: PANTOPRAZOLE SODIUM 40 MG/VIAL IV SCH (09:16)
[2016-09-11] MEDS: ENOXAPARIN 30MG/0.3ML SYR SUBCUT SCH (09:16)
[2016-09-11] MEDS: METOPROLOL TARTRATE 25MG TABLET PO SCH (09:17)
[2016-09-11 10:59] LABS: BG BASE EXCESS -0.2 mmol/L (-2.0-2.0); BG CARBOXYHEMOGLOBIN 0.7 % (0.5-1.5); BG DEOXYHEMOGLOBIN 5.1 % (0.0-5.0); BG FRACTION INSPIRED OXYGEN 28; BG METHEMOGLOBIN 0.2 % (0.0-1.5); BG OXYGEN SATURATION 94.9 % (92.0-98.5); BG PCO2 37.6 mmHg (35.0-45.0); BG PH 7.423 (7.350-7.450); BG PO2 75.1 mmHg (75.0-100.0); BG SAMPLE SITE RIGHT BRACHIAL; BG TOTAL HEMOGLOBIN 11.5 g/dL (12.0-18.0); BG VENT MODE NASAL CANNULA
[2016-09-11] MEDS: SODIUM HYPOCHLORITE (0.25%) 480ML SOLUTION (HALF STRENGTH) TOP SCH (12:05)
[2016-09-16] MEDS ORDERED: LOV40 SQ (11:28)
[2016-09-16] MEDS ORDERED: METO25TA6 PO (11:28)
[2016-09-16] MEDS ORDERED: FAMO20TA8 PO (11:28)
[2016-09-16] MEDS ORDERED: MIDODRINE PO ×2 (11:28)
[2016-09-16] MEDS ORDERED: ATOR40TA70 PO (11:28)
[2016-09-16] MEDS ORDERED: ASPI-1035 PO (11:28)
[2016-09-16] MEDS ORDERED: DUONEB (11:28)
[2016-09-16] MEDS ORDERED: SUCR1TAB PO (11:28)
[2016-09-16] MEDS ORDERED: CLON0.1T PO (11:40)
[2016-09-16] MEDS ORDERED: DOCU-138 PO (11:40)
[2016-09-16] MEDS ORDERED: ACET-2178 PO (11:40)
[2016-09-16] MEDS ORDERED: ROC50 PO (11:40)
[2016-09-16] MEDS ORDERED: MAG-AL PLUS PO (11:40)
[2016-09-16] MEDS ORDERED: GABA-531 PO (11:48)
[2016-09-16] MEDS ORDERED: PHOSLO PO (11:48)
== END 2016-09-11 20:30 | disposition still patient (30) | DRG 870 ==
LOC: ER 19:17 → 8WST 23:56 → CVICU 09-02 21:43 → 5EST 09-08 22:23
PROVIDERS: ADMIT Internal Medicine; ATTEND Internal Medicine
PROC: 5A1955Z Respiratory Ventilation, Greater than 96 Consecutive Hours (ICD-10-PCS; principal; 2016-09-02)
PROC: 0BH17EZ Insertion of Endotracheal Airway into Trachea, Via Natural or Artificial Opening (ICD-10-PCS; 2016-09-02)
PROC: 02HV33Z Insertion of Infusion Device into Superior Vena Cava, Percutaneous Approach (ICD-10-PCS; 2016-09-03)
PROC: B548ZZA Ultrasonography of Superior Vena Cava, Guidance (ICD-10-PCS; 2016-09-03)
PROC: 5A1D60Z (ICD-10-PCS; 2016-09-03)
PROC: 30233N1 Transfusion of Nonautologous Red Blood Cells into Peripheral Vein, Percutaneous Approach (ICD-10-PCS; 2016-09-03)
DX: A41.9 Sepsis, unspecified organism (principal); J96.00 Acute respiratory failure, unspecified whether with hypoxia or hypercapnia; N18.6 End stage renal disease; I46.9 Cardiac arrest, cause unspecified; E43 Unspecified severe protein-calorie malnutrition; L89.153 Pressure ulcer of sacral region, stage 3; J44.1 Chronic obstructive pulmonary disease with (acute) exacerbation; I13.2 Hypertensive heart and chronic kidney disease with heart failure and with stage 5 chronic kidney disease, or end stage renal disease; J44.0 Chronic obstructive pulmonary disease with (acute) lower respiratory infection; G93.1 Anoxic brain damage, not elsewhere classified; G89.4 Chronic pain syndrome; I45.10 Unspecified right bundle-branch block; I50.9 Heart failure, unspecified; D63.1 Anemia in chronic kidney disease; I25.10 Atherosclerotic heart disease of native coronary artery without angina pectoris; E87.5 Hyperkalemia; I35.1 Nonrheumatic aortic (valve) insufficiency; I73.9 Peripheral vascular disease, unspecified; I87.2 Venous insufficiency (chronic) (peripheral); K21.9 Gastro-esophageal reflux disease without esophagitis; Z79.02 Long term (current) use of antithrombotics/antiplatelets; Z95.1 Presence of aortocoronary bypass graft; Z99.2 Dependence on renal dialysis; Z79.82 Long term (current) use of aspirin; Z79.899 Other long term (current) drug therapy; Z95.5 Presence of coronary angioplasty implant and graft
CPT/HCPCS: 31500; 36415; 36569; 36600; 51702; 70450; 70551; 71010; 76937; 80048; 80053; 80061; 80076; 80202; 82270; 82375; 82550; 82553; 82805; 82962; 83605; 83735; 83880; 84443; 84478; 84484; 85025; 85610; 86706; 86803; 86850; 86900; 86920; 87040; 87070; 92610; 92950; 93005; 93306; 93970; 94002; 94003; 94640; 94664; 96361; 96365; 96366; 96367; 97162; 97166; 99291; A6261; C1725; C1892; C1893; C9113; J0171; J0885; J1650; J2060; J2270; J2543; J2704; J3010; J3370; J3490; J7030; J7040; J7042; J7050; J7060; J7620; P9016